=== PATIENT | male | born 1950 | race Caucasian/White ===

== ENCOUNTER 2023-04-11 15:22 | Emergency (ER) | payer SELFPAY ==
[~2023-04-11] VITALS: Ht 182.9 cm; Wt 99.8 kg
[2023-04-11 15:46] VITALS: BP 126/67
== END 2023-04-11 18:58 | disposition home or self-care (01) ==
LOC: ER 15:22
DX: Z45.2 Encounter for adjustment and management of vascular access device (principal)
CPT/HCPCS: 36589; 71045; 71046; 99283-25

== ENCOUNTER 2023-09-20 10:52 | Emergency (ER) | payer OTHER ==
[~2023-09-20] VITALS: Ht 182.9 cm; Wt 110.2 kg
[2023-09-20 11:01] VITALS: BP 102/67
== END 2023-09-20 12:14 | disposition home or self-care (01) ==
LOC: ER 10:52
DX: Z45.2 Encounter for adjustment and management of vascular access device (principal); L08.9 Local infection of the skin and subcutaneous tissue, unspecified; Z79.2 Long term (current) use of antibiotics
CPT/HCPCS: 99283

== ENCOUNTER 2023-12-12 04:17 | Day surgery (SDC) | payer OTHER | END 2023-12-12 22:52 | disposition home or self-care (01) | LOC: WOUND 04:17 | DX: T81.31XS Disruption of external operation (surgical) wound, not elsewhere classified, sequela (principal); I48.20 Chronic atrial fibrillation, unspecified; E08.628 Diabetes mellitus due to underlying condition with other skin complications; Z68.31 Body mass index [BMI] 31.0-31.9, adult; Z77.098 Contact with and (suspected) exposure to other hazardous, chiefly nonmedicinal, chemicals | CPT/HCPCS: G0463 ==

== ENCOUNTER 2023-12-16 03:54 | Day surgery (SDC) | payer OTHER | END 2023-12-16 22:56 | disposition home or self-care (01) | LOC: HBO 03:54 | DX: T81.31XS Disruption of external operation (surgical) wound, not elsewhere classified, sequela (principal); I48.20 Chronic atrial fibrillation, unspecified; E08.628 Diabetes mellitus due to underlying condition with other skin complications; Z77.098 Contact with and (suspected) exposure to other hazardous, chiefly nonmedicinal, chemicals; Z86.31 Personal history of diabetic foot ulcer; Y83.8 Other surgical procedures as the cause of abnormal reaction of the patient, or of later complication, without mention of misadventure at the time of the procedure | CPT/HCPCS: 82947; G0277 ==

== ENCOUNTER 2023-12-16 13:29 | Day surgery (SDC) | payer OTHER | END 2023-12-16 22:57 | disposition home or self-care (01) | LOC: WOUND 13:29 | DX: T81.31XD Disruption of external operation (surgical) wound, not elsewhere classified, subsequent encounter (principal); E08.628 Diabetes mellitus due to underlying condition with other skin complications; I48.20 Chronic atrial fibrillation, unspecified; Z86.31 Personal history of diabetic foot ulcer; Z77.098 Contact with and (suspected) exposure to other hazardous, chiefly nonmedicinal, chemicals | CPT/HCPCS: 87070; 87205; A6213; G0463 ==

== ENCOUNTER 2023-12-18 03:13 | Day surgery (SDC) | payer OTHER | END 2023-12-18 22:39 | disposition home or self-care (01) | LOC: HBO 03:13 | DX: T81.31XS Disruption of external operation (surgical) wound, not elsewhere classified, sequela (principal); Z77.098 Contact with and (suspected) exposure to other hazardous, chiefly nonmedicinal, chemicals; I48.20 Chronic atrial fibrillation, unspecified; E08.628 Diabetes mellitus due to underlying condition with other skin complications; Z86.31 Personal history of diabetic foot ulcer | CPT/HCPCS: 82947; G0277 ==

== ENCOUNTER 2023-12-19 02:41 | Day surgery (SDC) | payer OTHER | END 2023-12-19 22:42 | disposition home or self-care (01) | LOC: HBO 02:41 | DX: E11.622 Type 2 diabetes mellitus with other skin ulcer (principal); L97.319 Non-pressure chronic ulcer of right ankle with unspecified severity; T81.31XS Disruption of external operation (surgical) wound, not elsewhere classified, sequela; I48.20 Chronic atrial fibrillation, unspecified; E11.628 Type 2 diabetes mellitus with other skin complications; Z86.31 Personal history of diabetic foot ulcer; Z77.098 Contact with and (suspected) exposure to other hazardous, chiefly nonmedicinal, chemicals | CPT/HCPCS: 82947; G0277 ==

== ENCOUNTER 2023-12-20 03:59 | Day surgery (SDC) | payer OTHER | END 2023-12-20 22:56 | disposition home or self-care (01) | LOC: WOUND 03:59 | DX: T81.31XS Disruption of external operation (surgical) wound, not elsewhere classified, sequela (principal); E08.628 Diabetes mellitus due to underlying condition with other skin complications; I48.20 Chronic atrial fibrillation, unspecified; Z77.098 Contact with and (suspected) exposure to other hazardous, chiefly nonmedicinal, chemicals; Z86.31 Personal history of diabetic foot ulcer; Y83.8 Other surgical procedures as the cause of abnormal reaction of the patient, or of later complication, without mention of misadventure at the time of the procedure | CPT/HCPCS: 82947 ==

== ENCOUNTER 2023-12-20 04:02 | Day surgery (SDC) | payer OTHER | END 2023-12-20 22:57 | disposition home or self-care (01) | LOC: HBO 04:02 | DX: T81.31XS Disruption of external operation (surgical) wound, not elsewhere classified, sequela (principal); E08.628 Diabetes mellitus due to underlying condition with other skin complications; I48.20 Chronic atrial fibrillation, unspecified; Z86.31 Personal history of diabetic foot ulcer; Z77.098 Contact with and (suspected) exposure to other hazardous, chiefly nonmedicinal, chemicals | CPT/HCPCS: 82947; G0277 ==

== ENCOUNTER 2023-12-24 00:57 | Day surgery (SDC) | payer OTHER | END 2023-12-24 23:17 | disposition home or self-care (01) | LOC: HBO 00:57 | DX: T81.31XD Disruption of external operation (surgical) wound, not elsewhere classified, subsequent encounter (principal); Y83.8 Other surgical procedures as the cause of abnormal reaction of the patient, or of later complication, without mention of misadventure at the time of the procedure; E08.628 Diabetes mellitus due to underlying condition with other skin complications; I48.20 Chronic atrial fibrillation, unspecified; Z86.31 Personal history of diabetic foot ulcer; Z77.098 Contact with and (suspected) exposure to other hazardous, chiefly nonmedicinal, chemicals | CPT/HCPCS: 82947; G0277 ==

== ENCOUNTER 2023-12-25 04:46 | Day surgery (SDC) | payer OTHER | END 2023-12-25 23:10 | disposition home or self-care (01) | LOC: HBO 04:46 | DX: T81.31XS Disruption of external operation (surgical) wound, not elsewhere classified, sequela (principal); I48.20 Chronic atrial fibrillation, unspecified; E08.628 Diabetes mellitus due to underlying condition with other skin complications; Z86.31 Personal history of diabetic foot ulcer; Z77.098 Contact with and (suspected) exposure to other hazardous, chiefly nonmedicinal, chemicals | CPT/HCPCS: 82947; G0277 ==

== ENCOUNTER 2023-12-30 04:12 | Day surgery (SDC) | payer OTHER | END 2023-12-30 22:48 | disposition home or self-care (01) | LOC: HBO 04:12 | DX: E11.622 Type 2 diabetes mellitus with other skin ulcer (principal); L97.319 Non-pressure chronic ulcer of right ankle with unspecified severity; T81.31XS Disruption of external operation (surgical) wound, not elsewhere classified, sequela; I48.20 Chronic atrial fibrillation, unspecified; Z77.098 Contact with and (suspected) exposure to other hazardous, chiefly nonmedicinal, chemicals; Z86.31 Personal history of diabetic foot ulcer ==

== ENCOUNTER 2023-12-30 12:09 | Day surgery (SDC) | payer OTHER | END 2023-12-30 22:48 | disposition home or self-care (01) | LOC: WOUND 12:09 | DX: T81.31XD Disruption of external operation (surgical) wound, not elsewhere classified, subsequent encounter (principal); E11.622 Type 2 diabetes mellitus with other skin ulcer; L97.312 Non-pressure chronic ulcer of right ankle with fat layer exposed; I48.20 Chronic atrial fibrillation, unspecified; Z77.098 Contact with and (suspected) exposure to other hazardous, chiefly nonmedicinal, chemicals; Z86.31 Personal history of diabetic foot ulcer; Y83.8 Other surgical procedures as the cause of abnormal reaction of the patient, or of later complication, without mention of misadventure at the time of the procedure ==